=== PATIENT | female | born 1965 | race Caucasian/White ===

== ENCOUNTER 2017-06-04 18:03 | Inpatient (IN) | payer OTHER ==
[~2017-06-04] VITALS: Ht 165.1 cm; Wt 65.0 kg
[2017-06-04] MEDS ORDERED: ASPIRIN 81 MG TABLET CHEW PO ONE (19:00)
[2017-06-04] MEDS ORDERED: ASPIRIN 81 MG TABLET CHEW ONE (19:04)
[2017-06-04 19:18] LABS: HEMATOCRIT 45.3 % (34.6-47.8); HEMOGLOBIN 15.6 g/dL (11.7-16.4); WHITE BLOOD COUNT 6.3 x10^3/uL (3.4-10)
[2017-06-04 19:28] LABS: BLOOD UREA NITROGEN 14 mg/dL (7-18)
[2017-06-04 19:32] LABS: IS PT STATUS REG ER OR PRE ER? YES
[2017-06-04] MEDS ORDERED: ONDANSETRON 2MG/ML, 2ML IVPush PRN (20:30)
[2017-06-04 21:49] VITALS: BP 111/72
[2017-06-04] MEDS ORDERED: ASPI-770 PO (22:12)
[2017-06-05] MEDS ORDERED: ACETAMINOPHEN 325 MG TABLET PO PRN
[2017-06-05] MEDS ORDERED: ENOXAPARIN 40 MG/0.4 ML SQ SCH
[2017-06-05] MEDS ORDERED: ONDANSETRON 2MG/ML, 2ML IVPush PRN
[2017-06-05] MEDS ORDERED: TEMAZEPAM 15 MG CAPSULE PO PRN
[2017-06-05 00:51] LABS: IS PT STATUS REG ER OR PRE ER? NO
[2017-06-05] MEDS: SODIUM CHLORIDE 0.9% 1,000 ML IV SCH ×2 (00:59→08:16)
[2017-06-05 01:59] VITALS: BP 125/82
[2017-06-05] MEDS ORDERED: ASPIRIN 325 MG TABLET EC PO SCH (06:00)
[2017-06-05 06:02] LABS: IS PT STATUS REG ER OR PRE ER? NO
[2017-06-05 06:57] VITALS: BP 121/77
[2017-06-05] MEDS ORDERED: REGADENOSON 0.4 MG/5 ML SYRINGE ONE (08:09)
[2017-06-05 13:07] VITALS: BP 123/83
== END 2017-06-05 16:07 | disposition home or self-care (01) | DRG 206 ==
LOC: ED 20:03 → EDIP 20:23 → 5SO 20:55
PROVIDERS: ADMIT Internal Medicine; ATTEND Internal Medicine
DX: M94.0 Chondrocostal junction syndrome [Tietze] (principal); F17.210 Nicotine dependence, cigarettes, uncomplicated; J42 Unspecified chronic bronchitis
CPT/HCPCS: 36415; 71010; 78452; 80048; 80061; 82040; 84443; 84484; 85025; 87324; 93005; 93017; J1650; J2405; J2785; A9502; C9898; J7030

== ENCOUNTER 2017-11-14 02:08 | Emergency (ER) | payer SELFPAY ==
[~2017-11-14] VITALS: Ht 167.6 cm; Wt 68.0 kg
[~2017-11-14 02:08] MED LIST: ASPI-770 PO
[2017-11-14] MEDS ORDERED: FAMOTIDINE 20 MG TABLET PO ONE (02:30)
[2017-11-14] MEDS ORDERED: ONDANSETRON ODT 8 MG PO ONE (02:30)
[2017-11-14] MEDS ORDERED: FAMOTIDINE 20 MG TABLET ONE (02:36)
[2017-11-14 03:19] LABS: BASOPHILS # (AUTO) 0.02 x10^3/uL (0-0.1); BASOPHILS % (AUTO) 1 % (0-1); EOSINOPHILS # (AUTO) 0.06 x10^3/uL (0-0.4); EOSINOPHILS % (AUTO) 1 % (1-7); LYMPHOCYTES # (AUTO) 1.65 x10^3/uL (1-3.4); LYMPHOCYTES % (AUTO) 36 % (22-44); MD NO; MEAN CORPUSCULAR HEMOGLOBIN 35.9 pg (27.0-34.8); MEAN CORPUSCULAR HGB CONC 34.4 g/dL (32.4-35.8); MEAN CORPUSCULAR VOLUME 104.3 fL (80-100); MONOCYTES # (AUTO) 0.39 x10^3/uL (0.2-0.8); MONOCYTES % (AUTO) 9 % (2-9); NEUTROPHILS # (AUTO) 2.48 x10^3/uL (1.8-6.8); NEUTROPHILS % (AUTO) 54 % (42-75); PLATELET COUNT 181 x10^3/uL (130-400); RED BLOOD COUNT 4.21 x10^6/uL (3.82-5.3); RED CELL DISTRIBUTION WIDTH 13.3 % (9.6-15.2)
[2017-11-14 03:21] LABS: MICROSCOPIC AUTO
[2017-11-14 03:22] LABS: CULTURE INDICATED? YES
[2017-11-14 03:33] LABS: ALBUMIN 3.8 g/dL (3.4-5.0); ANION GAP 14 mmol/L (5-15); CALCIUM 8.1 mg/dL (8.5-10.1); CHLORIDE 106 mmol/L (98-107)
[2017-11-14 03:40] LABS: ALANINE AMINOTRANSFERASE 80 U/L (12-78); ALKALINE PHOSPHATASE 109 U/L (45-117); BILIRUBIN,TOTAL 0.6 mg/dL (0.2-1.0); CREATININE 0.74 mg/dL (0.55-1.02); TOTAL PROTEIN 7.9 g/dL (6.4-8.2); TROPONIN I < 0.015 ng/mL (0.000-0.045)
[2017-11-14 04:38] VITALS: BP 117/71
== END 2017-11-14 04:41 | disposition home or self-care (01) ==
LOC: ED 03:37
DX: K29.20 Alcoholic gastritis without bleeding (principal); F10.10 Alcohol abuse, uncomplicated; Z72.89 Other problems related to lifestyle
CPT/HCPCS: 36415; 80053; 80307; 81001; 83690; 84484; 84703; 85025; 86677; 87077; 87086; 87186; 99284

== ENCOUNTER 2018-01-08 00:53 | Emergency (ER) | payer MEDICAID, OTHER ==
[~2018-01-08] VITALS: Ht 167.6 cm; Wt 65.0 kg
[~2018-01-08 00:53] MED LIST changes: +FOLI-17 PO; +THIA100T10 PO
[2018-01-08 02:56] VITALS: BP 101/69
== END 2018-01-08 03:00 | disposition home or self-care (01) ==
LOC: ED 01:45
DX: S06.0X0A Concussion without loss of consciousness, initial encounter (principal); S02.2XXA Fracture of nasal bones, initial encounter for closed fracture; F17.200 Nicotine dependence, unspecified, uncomplicated; F10.120 Alcohol abuse with intoxication, uncomplicated; W06.XXXA Fall from bed, initial encounter; Y93.89 Activity, other specified; Y92.89 Other specified places as the place of occurrence of the external cause; Y99.8 Other external cause status
CPT/HCPCS: 70450; 70486; 72125; 99284

== ENCOUNTER 2018-10-17 09:43 | Emergency (ER) | payer MEDICAID ==
[~2018-10-17] VITALS: Ht 170.2 cm; Wt 64.0 kg
[~2018-10-17 09:43] MED LIST changes: -ASPI-770 PO; +ASPI81TA59 PO
--- NOTE | 2018-10-17 09:58 | NUR ---
patient BENJAMIN SALAZAR from [facility], C/C to this RN is L ankle pain, lower bilateral belly pain. DASHAWN Person at bedside now, VSS on room air, PWD, patient endorses 3 alcoholic drinks today, she reports that she initially fell and fractured her ankle in Jul, was given a splint and crutches, she says she fell again on Oct 06 and re injured the ankle. RLQ and LLQ Abd pain started 3 months ago 05/10, patient states she takes 6-8 200 mg Ibuprofen tablets daily.
[2018-10-17 10:20] LABS: BASOPHILS # (AUTO) 0.03 x10^3/uL (0-0.1); BASOPHILS % (AUTO) 1 % (0-1); EOSINOPHILS # (AUTO) 0.13 x10^3/uL (0-0.4); EOSINOPHILS % (AUTO) 2 % (1-7); LYMPHOCYTES # (AUTO) 1.92 x10^3/uL (1-3.4); LYMPHOCYTES % (AUTO) 36 % (22-44); MD NO; MEAN CORPUSCULAR HEMOGLOBIN 36.8 pg (27.0-34.8); MEAN CORPUSCULAR HGB CONC 34.6 g/dL (32.4-35.8); MEAN CORPUSCULAR VOLUME 106.4 fL (80-100); MEAN PLATELET VOLUME 6.9 fL (7.4-10.4); MONOCYTES # (AUTO) 0.39 x10^3/uL (0.2-0.8); MONOCYTES % (AUTO) 7 % (2-9); NEUTROPHILS % (AUTO) 54 % (42-75); PLATELET COUNT 253 x10^3/uL (130-400); RED CELL DISTRIBUTION WIDTH 14.5 % (9.6-15.2)
[2018-10-17 10:34] LABS: ALANINE AMINOTRANSFERASE 55 U/L (12-78); ALBUMIN 3.7 g/dL (3.4-5.0); ANION GAP 7 mmol/L (5-15); CALCIUM 8.5 mg/dL (8.5-10.1); CHLORIDE 106 mmol/L (98-107); CREATININE 0.64 mg/dL (0.55-1.02)
[2018-10-17 10:38] LABS: ALKALINE PHOSPHATASE 119 U/L (45-117); BILIRUBIN,TOTAL 0.3 mg/dL (0.2-1.0)
[2018-10-17 10:39] LABS: MICROSCOPIC AUTO
[2018-10-17 10:45] LABS: CULTURE INDICATED? NO
[2018-10-17 12:39] VITALS: BP 118/74
== END 2018-10-17 12:42 | disposition home or self-care (01) ==
LOC: ED 10:54
DX: S82.62XA Displaced fracture of lateral malleolus of left fibula, initial encounter for closed fracture (principal); S82.55XA Nondisplaced fracture of medial malleolus of left tibia, initial encounter for closed fracture; K86.1 Other chronic pancreatitis; R89.1 Abnormal level of hormones in specimens from other organs, systems and tissues; Z72.9 Problem related to lifestyle, unspecified; W01.0XXA Fall on same level from slipping, tripping and stumbling without subsequent striking against object, initial encounter; Y93.89 Activity, other specified; Y92.89 Other specified places as the place of occurrence of the external cause; Y99.8 Other external cause status
CPT/HCPCS: 29515; 36415; 80053; 81001; 83690; 84703; 85025; 99284

== ENCOUNTER 2018-12-17 09:51 | Emergency (ER) | payer MEDICAID ==
[~2018-12-17] VITALS: Ht 157.5 cm; Wt 70.0 kg
--- NOTE | 2018-12-17 10:07 | NUR ---
PRESENTS VIA [facility] FOR BILATERAL EYELID/FOREHEAD/NASAL BRIDGE SWELLING, MUSCLE ACHES/CHILLS X 2 DAYS. DENIES TRAUMA, CHANGES IN FOOD/MEDICINES/DETERGENTS. DENIES SKIN/THROAT IRRITATION. MULTIPLE SKIN ABNORMALITIES NOTED TO BACK (PATIENT REPORTS PROBABLE BUG BITES FROM SLEEPING AT JAIL). NO GLASSES (BROKEN) LEFT EYE 20/50, RIGHT EYE 20/30, BILATERAL 20/30.
[2018-12-17] MEDS ORDERED: DIPHENHYDRAMINE 25 MG CAPSULE ONE (10:16)
[2018-12-17] MEDS ORDERED: ACETAMINOPHEN 325 MG TABLET ONE (10:16)
[2018-12-17] MEDS ORDERED: FAMOTIDINE 20 MG TABLET ONE (10:16)
[2018-12-17] MEDS ORDERED: FAMOTIDINE 20 MG TABLET PO ONE (10:30)
[2018-12-17] MEDS ORDERED: ACETAMINOPHEN 325 MG TABLET PO ONE (10:30)
[2018-12-17] MEDS ORDERED: DIPHENHYDRAMINE 25 MG CAPSULE PO ONE (10:30)
[2018-12-17 10:47] LABS: RAPID INFLUENZA A Negative (Negative); RAPID INFLUENZA B Negative (Negative)
[2018-12-17 11:10] VITALS: BP 105/69
--- NOTE | 2018-12-17 11:12 | NUR ---
Patient resting in bed comfortabley, now afebrile, swelling unchanged. taking po fluids/solids w/out difficulty
== END 2018-12-17 11:39 | disposition home or self-care (01) ==
LOC: ED 10:40
DX: L50.0 Allergic urticaria (principal); B34.9 Viral infection, unspecified; F17.200 Nicotine dependence, unspecified, uncomplicated
CPT/HCPCS: 71046; 87400; 99284; J7512; Q0163

== ENCOUNTER 2019-03-15 08:13 | Emergency (ER) | payer MEDICAID ==
[~2019-03-15] VITALS: Ht 167.6 cm; Wt 63.6 kg
[2019-03-15 08:21] VITALS: BP 107/75
== END 2019-03-15 08:49 | disposition home or self-care (01) ==
LOC: ED 08:43
DX: B85.0 Pediculosis due to Pediculus humanus capitis (principal)
CPT/HCPCS: 99283

== ENCOUNTER 2019-08-25 18:49 | Emergency (ER) | payer MEDICAID ==
[~2019-08-25] VITALS: Ht 165.1 cm; Wt 64.0 kg
[2019-08-25] MEDS ORDERED: FAMOTIDINE 20 MG/2 ML IV ONE (19:00)
[2019-08-25] MEDS ORDERED: SODIUM CHLORIDE FLUSH 10ML SYR IVF ONE (19:00)
[2019-08-25] MEDS ORDERED: ONDANSETRON 2MG/ML, 2ML IVPush ONE (19:00)
--- NOTE | 2019-08-25 19:13 | NUR ---
PT TO ED FOR ANX WITH SOB AND INCREASED RR AFTER VERBAL ALTERCATION WITH BOYFRIEND. PT STATES SHE "JUST CANNOT CATCH HER BREATH." PT ALSO C/O ABD PAIN AND BLOODY STOOL. +ETOH AT THIS TIME. HX PANCREATITIS AND UTI (ON ABX). PT CONNECTED TO ALL MONIOTRS. VSS. DR. BALDERAS TO BS FOR ASSESSMENT. ORDERS RECEIVED. LABS DRAWN. XR COMPLETE. PT REFUSING PIV AT THIS TIME. DR. BALDERAS NOTIFIED. IV MEDS CHANGED TO PO. NO OTHER NEEDS AT THIS TIME. AWAITING RESULTS.
[2019-08-25 19:17] LABS: MEAN CORPUSCULAR HEMOGLOBIN 37.9 pg (27.0-34.8); MEAN CORPUSCULAR HGB CONC 33.7 g/dL (32.4-35.8); MEAN CORPUSCULAR VOLUME 112.6 fL (80-100); PLATELET COUNT 245 x10^3/uL (130-400); RED BLOOD COUNT 3.88 x10^6/uL (3.82-5.3); RED CELL DISTRIBUTION WIDTH 13.6 % (9.6-15.2)
[2019-08-25] MEDS ORDERED: ONDANSETRON ODT 4 MG ONE (19:17)
[2019-08-25] MEDS ORDERED: FAMOTIDINE 20 MG TABLET ONE (19:17)
--- NOTE | 2019-08-25 19:25 | NUR ---
DR. BALDERAS TO BS FOR RECTAL EXAM.
[2019-08-25 19:26] LABS: ALANINE AMINOTRANSFERASE 51 U/L (12-78); ALBUMIN 3.2 g/dL (3.4-5.0); ANION GAP 9 mmol/L (5-15); CALCIUM 8.6 mg/dL (8.5-10.1); CHLORIDE 105 mmol/L (98-107); CREATININE 0.57 mg/dL (0.55-1.02)
[2019-08-25 19:29] LABS: ALKALINE PHOSPHATASE 264 U/L (45-117); BILIRUBIN,TOTAL 0.9 mg/dL (0.2-1.0); TOTAL PROTEIN 8.4 g/dL (6.4-8.2)
[2019-08-25] MEDS ORDERED: ONDANSETRON ODT 4 MG PO ONE (19:30)
[2019-08-25] MEDS ORDERED: FAMOTIDINE 20 MG TABLET PO ONE (19:30)
--- NOTE | 2019-08-25 19:39 | NUR ---
P TUP SELF WITH STEADY GAIT TO TO PROVIDE UA SAMPLE. UA COLLECTED AND SENT. SHINGLE SAWYER CART SET UP PER REQUEST OF DR. BALDERAS FOR MORE EXTENSIVE RECTAL EXAM.
[2019-08-25 20:02] LABS: MICROSCOPIC AUTO
[2019-08-25 20:04] LABS: CULTURE INDICATED? YES
[2019-08-25 20:11] LABS: BASOPHILS # (AUTO) 0.04 x10^3/uL (0-0.1); BASOPHILS % (AUTO) 1 % (0-1); EOSINOPHILS # (AUTO) 0.12 x10^3/uL (0-0.4); EOSINOPHILS % (AUTO) 1 % (1-7); LYMPHOCYTES # (AUTO) 2.17 x10^3/uL (1-3.4); LYMPHOCYTES % (AUTO) 25 % (22-44); MD MORPH REVIEW ONLY; MONOCYTES # (AUTO) 0.55 x10^3/uL (0.2-0.8); MONOCYTES % (AUTO) 6 % (2-9); NEUTROPHILS # (AUTO) 5.91 x10^3/uL (1.8-6.8); NEUTROPHILS % (AUTO) 67 % (42-75)
[2019-08-25 20:16] LABS: <PLATELET ESTIMATE> ADEQUATE; <PLT MORPHOLOGY> NORMAL PLT MORPH; POLYCHROMASIA 1+
[2019-08-25 20:22] VITALS: BP 98/63
--- NOTE | 2019-08-25 20:22 | NUR ---
PT RESTING IN ROOM WITH EYES CLOSED. VSS. NO NEEDS EXPRESSED. CALL LIGHT WITHIN REACH. ALL RESULTS BACK AT THIS TIME. CHART UP FOR RECHECK.
== END 2019-08-25 20:51 | disposition home or self-care (01) ==
LOC: ED 20:30
DX: F41.1 Generalized anxiety disorder (principal); K64.8 Other hemorrhoids; K70.10 Alcoholic hepatitis without ascites; F17.210 Nicotine dependence, cigarettes, uncomplicated; F10.229 Alcohol dependence with intoxication, unspecified; Y90.9 Presence of alcohol in blood, level not specified
CPT/HCPCS: 36415; 71045; 80053; 80307; 81001; 82140; 83690; 85025; 87077; 87086; 99284; Q0162; 87186